=== PATIENT | female | born 2000 | race Hispanic/Latino ===

== ENCOUNTER 2022-03-13 13:28 | Emergency (ER) | payer MEDICAID ==
[~2022-03-13] VITALS: Ht 157.5 cm; Wt 57.2 kg
[2022-03-13] MEDS ORDERED: IBUPROFEN 800 MG TAB PO ONE (14:00)
[2022-03-13] MEDS ORDERED: AMOX/CLAV 875/125MG TAB PO ONE (14:00)
[2022-03-13] MEDS ORDERED: TETANUS/DIPHTHERIA TOXOID [ADULT] 0.5 ML VIAL IM ONE (14:00)
[2022-03-13 14:50] VITALS: BP 117/71
[2022-03-13] MEDS ORDERED: IBUP-2070 PO (14:53)
[2022-03-13] MEDS ORDERED: AMOX1TAB16 PO (14:53)
== END 2022-03-13 14:56 | disposition home or self-care (01) ==
LOC: EDH 13:28
DX: S61.211A Laceration without foreign body of left index finger without damage to nail, initial encounter (principal); J45.909 Unspecified asthma, uncomplicated; Z88.5 Allergy status to narcotic agent; W54.0XXA Bitten by dog, initial encounter; Y93.89 Activity, other specified; Y92.89 Other specified places as the place of occurrence of the external cause; Y99.8 Other external cause status
CPT/HCPCS: 73140; 90471; 90714

== ENCOUNTER 2022-03-13 23:05 | Emergency (ER) | payer MEDICAID ==
[~2022-03-13] VITALS: Ht 157.5 cm; Wt 62.6 kg
[~2022-03-13 23:05] MED LIST: AMOX1TAB16 PO; IBUP-2070 PO
[2022-03-13 23:26] VITALS: BP 124/68
== END 2022-03-13 23:45 | disposition home or self-care (01) ==
LOC: EDH 23:05
DX: S61.255D Open bite of left ring finger without damage to nail, subsequent encounter (principal); Z88.5 Allergy status to narcotic agent; W54.0XXD Bitten by dog, subsequent encounter